=== PATIENT | female | born 1960 | race Caucasian/White ===

== ENCOUNTER 2024-06-05 10:55 | Day surgery (SDC) | payer BC ==
[2024-06-04 11:09] LABS: Absolute Eosinophils 0.1 K/uL (0-0.5); Absolute Lymphocytes (CBC) 1.4 K/uL (0.7-4.9); Absolute Monocytes 0.3 K/uL (0.1-1.3); Absolute Neutrophil 3.4 K/uL (1.8-8.0); Basophils % 0.8 % (0-1.3); Eosinophils % 1.2 % (0-4.4); Hematocrit 40.2 % (36.0-45.0); Hemoglobin 13.3 g/dL (12.0-15.0); Lymphocytes % 27.1 % (15.3-44.8); MCH 30.2 pg (27.0-35.0); MCHC 33.1 g/dL (32.0-36.0); MCV 91.1 fL (80-100); MPV 8.3 fL (7.6-11.3); Monocytes % 5.8 % (3.3-12.3); Neutrophils % 65.1 % (41.7-73.7); Platelets 229 thou/uL (152-406); RBC Red Blood Cell Count 4.41 M/uL (3.86-4.86); Red Cell Distribution Width 13.5 % (12.1-15.2)
[2024-06-04 11:18] LABS: Anion Gap 6.9 mEq/L (5.0-15.0); Potassium 3.9 mEq/L (3.5-5.1)
--- NOTE | 2024-06-04 12:24 | EKG ---
Test Date: 2024-06-04 Test Time: 10:47:51 Engineering Intern: SAM MEASUREMENT RESULTS: Intervals: Rate: 81 WA: 200 QRSD: 86 QT: 418 QTc: 485 [place]: P: 75 WA: 200 QRS: 51 T: 59 INTERPRETIVE STATEMENTS: Sinus rhythm with premature atrial complexes Nonspecific T wave abnormality Prolonged QT Abnormal ECG No previous ECG available for comparison Electronically Signed On 06-04-24 12:24:10 CDT by Juarez Molina
[2024-06-05] MEDS ORDERED: Ringers Lactate 1,000 ML IV ONE (11:17)
[2024-06-05] MEDS ORDERED: propofoL 200 MG/20 ML VIAL IV ONE ×2 (12:21→13:02)
[2024-06-05] MEDS ORDERED: LIDOCAINE 1% MPF 5 ML VIAL ONE (12:21)
[2024-06-05 13:56] VITALS: TEMP 98.4
[2024-06-05 13:58] VITALS: BP 121/58; O2SAT 99
== END 2024-06-05 14:00 | disposition home or self-care (01) ==
LOC: OR 10:55
PROVIDERS: ATTEND Surgery
PROC: 0DBK8ZX Excision of Ascending Colon, Via Natural or Artificial Opening Endoscopic, Diagnostic (ICD-10-PCS; principal; 2024-06-05 12:30)
DX: Z12.11 Encounter for screening for malignant neoplasm of colon (principal); K57.30 Diverticulosis of large intestine without perforation or abscess without bleeding; K64.8 Other hemorrhoids; D12.2 Benign neoplasm of ascending colon
CPT/HCPCS: 93005; 85025; 80048; 36415; 88305; 45380; J2704 ×2; J2001; J7120